=== PATIENT | female | born 1995 | race African-American/Black ===

== ENCOUNTER 2016-11-27 11:50 | Emergency (ER) | payer MEDICAID, OTHER ==
[~2016-11-27] VITALS: Ht 167.6 cm; Wt 54.9 kg
[2016-11-27 12:59] LABS: Basophils # (auto) 0 uL; Basophils % (auto) 0.3 % (0.0-2.0); Eosinophils # (auto) 0.1 uL; Eosinophils % (auto) 0.8 % (0.0-7.0); Hematocrit 39.8 % (36.0-46.0); Hemoglobin 13.2 g/dL (12.2-16.2); Lymphocytes # (auto) 1.6 uL; Lymphocytes % (auto) 21.2 % (10.0-50.0); Mean Corpuscular Hemoglobin 28.4 pg (28.0-32.0); Mean Corpuscular Hgb Conc. 33.1 g/dL (32.0-36.0); Mean Corpuscular Volume 85.8 fL (80.0-100.0); Mean Platelet Volume 7.8 fL (7.4-10.4); Monocytes # (auto) 0.4 uL; Neutrophils # (auto) 5.6 uL; Neutrophils % (auto) 72.7 % (37.0-80.0); Platelet Count (auto) 345 10^3/uL (140-450); White Blood Cell 7.7 10^3/uL (4.4-10.8)
[2016-11-27 13:22] LABS: BUN/Creatinine Ratio 12.7; Bilirubin, Total 0.5 mg/dL (0.2-1.0); Calcium 8.6 mg/dL (8.5-10.1); Potassium 3.6 mmol/L (3.5-5.1); Total Protein 7.3 g/dL (6.4-8.2)
[2016-11-27 15:14] LABS: Urine Bilirubin Negative (Negative); Urine Blood Negative /uL (Negative); Urine Color Yellow (Yellow); Urine Glucose Normal (Normal); Urine Ketone Negative (Negative); Urine Mucus FEW (None Seen); Urine RBC 2 /hpf (0 - 4); Urine Squamous Epithelial Cell FEW /hpf (<5); Urine Urobilinogen Normal (Negative); Urine pH 7.5 (5.0-8.0)
[2016-11-27 15:27] LABS: Urine Nitrite POSITIVE (Negative)
[2016-11-27] MEDS ORDERED: NITROFURANTOIN (MONO) 100 mg CAP PO ONE (19:45)
[2016-11-27 20:13] VITALS: BP 91/55
== END 2016-11-27 20:14 | disposition home or self-care (01) ==
LOC: ER 11:56
DX: O23.41 Unspecified infection of urinary tract in pregnancy, first trimester (principal); Z3A.01 Less than 8 weeks gestation of pregnancy
CPT/HCPCS: 36415; 76801; 80053; 81001; 84702; 85025; 86901

== ENCOUNTER 2024-08-27 08:47 | Emergency (ER) | payer MEDICAID, OTHER ==
[~2024-08-27] VITALS: Ht 167.6 cm; Wt 53.2 kg
[2024-08-27] MEDS ORDERED: AMOX500T3 PO (09:40)
--- NOTE | 2024-08-27 09:40 | ED.PDOC ---
History of Present Illness(SKN HPI Comments 28 year old w/ no medical hx presents for a concern of 2 dots on her forehead. Noticed them yesterday. Also c/o of possible abscess to the RUQ. Follows up with [facility]. Has no upcoming apt. Also has PCP: Dr. Shikha Kruse Seen them last month for a physical. Pending thyroid referral Denies fevers chills night sweats unintentional weight loss Denies persistent chest pain, shortness of breath, leg swelling Chief Complaint: Tooth Pain Time Seen by MD: 09:01 Primary Care Provider: BRENT History of Present Illness: Nurses Notes, Medications, Allergies Allergies: Coded Allergies: NO KNOWN ALLERGIES (Unverified , 11/27/16) Home Meds Active Scripts Amoxicillin Trihydrate (Amoxicillin) 500 Mg Tab, 1 TAB PO BID for 10 Days, #20 TAB 0 Refills Prov:MILAGRO RILEY NP 08/27/24 Information Source: Patient Mode of Arrival: Ambulatory Past Medical History PAST MEDICAL HISTORY: Denies Surgical History: Denies all surgeries HYDRAULIC MINER History: No Pertinent HYDRAULIC MINER History Family History Family History: Unobtainable Social History Smoker: Non-Smoker Alcohol: Denies ETOH Use Drugs: Denies Drug Use Lives In: Home All Other Systems: Reviewed and Negative (Per HPI) Physical Exam General Appearance: No Apparent Distress, Normal HEENT: Normal ENT Inspection, Pharynx Normal, TMs Normal, Other (noticible abscess to RUQ. Airway intact. [place] tongue. No drooling. Taking full sentences in no distress) Neck: Full Range of Motion, Non-Tender, Normal, Normal Inspection Respiratory: Chest Non-Tender, Lungs Clear, No Accessory Muscle Use, No Respiratory Distress, Normal Breath Sounds Cardiovascular: No Murmur, No Gallop, Regular Rate/Rhythm Breast Exam: Deferred Gastrointestinal: No Organomegaly, Non Tender, No Pulsatile Mass, Normal Bowel Sounds, Soft Genitalia: Deferred Pelvic: Deferred Rectal: Deferred Extremities: No calf tenderness, Normal capillary refill, Normal inspection, Normal range of motion, Non-tender, No pedal edema Musculoskeletal : Apperance: Normal Neurologic: Alert, No Motor Deficits, Normal Affect, No Sensory Deficits Cerebellar Function: Normal Reflexes: Normal Skin: Dry, Normal Color, Warm Lymphatic: No Adenopathy Was a procedure done? Was a procedure done?: No Differential Diagnosis (INTG) Differential Diagnosis: Puncture Wound, Other X-Ray, Labs, Meds, VS Vital Signs Date Time Temp Pulse Resp B/P (MAP) Pulse Ox O2 Delivery O2 Flow Rate FiO2 08/27/24 09:44 100 18 98 Room Air 08/27/24 09:44 97.9 100 18 101/65 (77) 98 97.9 08/27/24 08:57 97.9 100 18 101/65 (77) 98 X-Ray, Labs, Meds, VS Comment After ROS physical examination no red flags. Patient explained that her concern of the two dots on her forehead do not represent a serious medical emergency at this time therefore no further workup his needed at this time. Advised to follow up PCP Patient is stable for discharge at this time. External notes reviewed. Test results and diagnostic imaging interpreted. All diagnostic findings, discharge care, education and instructions provided Follow-up with PCP in 2 to 3 days Patient verbalized understanding and agreed to treatment plan Vital signs stable, afebrile, no acute distress noted Patient ambulatory with strong steady gait Advised to return precautions for any new or worsening symptoms, return to ER immediately for re-evaluation Patient is aware that the purpose of this visit was for an acute medical emergency requiring emergent stabilization. Chronic conditions, including malignancies have not been ruled out. Patient is instructed to follow up with PCP as directed and discharge instructions for continued care and workup. If unable to arrange follow-up, patient is to return to the emergency department for reassessment. Patient (parent or legal guardian if applicable) was given verbal and written discharge instructions and acknowledges understanding. Time of 1ST Reevaluation: 09:30 Reevaluation 1ST: Improved Patient Education/Counseling: Diagnosis, Treatment Family Education/Counseling: Diagnosis, Treatment Departure 1 Departure Time of Disposition: 09:37 Impression: Primary Impression: Pericoronal abscess Disposition: 01 HOME / SELF CARE / HOMELESS Condition: Stable e-Prescriptions Amoxicillin Trihydrate (Amoxicillin) 500 Mg Tab 1 TAB PO BID for 10 Days, #20 TAB 0 Refills Prov: MILAGRO RILEY NP 08/27/24 Discharged With: Self Critical Care Note Critical Care Time?: No Stability Stability form required: No Heart Score Heart Score: Heart Score Response (Comments) Value History N/A 0 EKG N/A 0 Age N/A 0 Risk Factors N/A 0 Troponin N/A 0 Total 0 MILAGRO RILEY [employer]PER[employer] Aug 27, 2024 09:40
[2024-08-27 09:44] VITALS: BP 101/65; PULSE 100; RESP 18; TEMP 97.9; O2SAT 98
== END 2024-08-27 09:51 | disposition home or self-care (01) ==
LOC: ER 08:47
DX: K05.219 Aggressive periodontitis, localized, unspecified severity (principal); K08.89 Other specified disorders of teeth and supporting structures